=== PATIENT | female | born 1965 | race African-American/Black ===

== ENCOUNTER 2016-07-23 09:38 | Day surgery (SDC) | payer OTHER ==
--- NOTE | 2016-07-17 08:53 | HISTORY AND PHYSICAL E ---
History and Physical NAME: KATIE FRANK : 1965 AGE: 51Y ADMITTED: 07/23/2016 ROOM: Patient is known to us. I did a colonoscopy on her in the year 2014. She had sessile villous adenoma polyp about 1 cm in the right colon. The patient does have occasional diverticulosis in the transverse colon and the sessile adenoma polyp. The patient did have another colonoscopy 06/13/2016 that showed sessile cecal polyp, ascending colon polyps. PHYSICAL EXAMINATION: GENERAL: Pleasant, alert, oriented in no acute distress. VITAL SIGNS: Blood pressure is 120/80, pulse 80, respirations 18, temperature is 98. HEAD, EYES, EARS, NOSE, THROAT: Normal. NECK: Supple. LUNGS: Clear. ABDOMEN: Soft. NEUROLOGIC: Exam negative. CONCLUSION: Colorectal polyps. Referred back to me by the hospitalist. REVIEW OF SYSTEMS: CARDIOVASCULAR: Hypertension. ENDOCRINE: Diabetes. GASTROINTESTINAL: Sessile polyps, right colon. Diverticulosis. FAMILY HISTORY: Mom had colon cancer, . Her father had congestive heart failure. MEDICATIONS: 1. Simvastatin. 2. Metformin. PLAN: Colon exam. DICTATING PHYSICIAN: LEODAN VENTURA M.D. [id number] PHY#: [id number] ID: [id number] JOB#: [id number] ACCT: [id number] cc:LEODAN VENTURA M.D. >
--- NOTE | 2016-07-21 15:41 | HISTORY AND PHYSICAL E ---
History and Physical NAME: KATIE FRANK : 1965 AGE: 51Y ADMITTED: 07/23/2016 ROOM: CHIEF COMPLAINT: Colonoscopy. HISTORY: The patient was seen in 2014. Colon showed sessile adenoma, polyps. At this time, patient followup colonoscopy regarding sessile polyps ascending colon. The patient did have colonoscopy show sessile polyp in November 2014. CEA is normal. REVIEW OF SYSTEMS: CARDIAC: Hypertension. ENDOCRINE: Diabetes. GASTROINTESTINAL: Sessile polyps, right colon. FAMILY HISTORY: Father and mom both are had CA of the colon. Father had congestive heart failure. PHYSICAL EXAMINATION: VITAL SIGNS: Blood pressure 150/80, pulse 80, respirations 20, temp 98. HEAD, EYES, EARS, NOSE AND THROAT: Normal. NECK: Neck is supple. LUNGS: Lungs are clear. ABDOMEN: Soft. NEUROLOGIC: Exam negative. MEDICATIONS: The patient takes: 1. Simvastatin. 2. Metformin. CONCLUSIONS: Colon screening, history of sessile polyp right colon. PLAN: Colonoscopy. Admit 07/23/2016. DICTATING PHYSICIAN: LEODAN VENTURA M.D. [id number] PHY#: [id number] ID: [id number] JOB#: [id number] ACCT: [id number] cc:[facility] LEODAN NICOLE M.D. >
[2016-07-23] MEDS ORDERED: ONDANSETRON HCL INJ/PF 4 MG/2 ML SDV ONE (09:44)
[2016-07-23] MEDS ORDERED: LIDOCAINE 2% JELLY 30 ML TUBE ONE (09:44)
[2016-07-23] MEDS ORDERED: PROMETHAZINE HCL INJ 25 MG/1 ML VIAL ONE (09:44)
[2016-07-23] MEDS ORDERED: GLYCOPYRROLATE INJ 0.4 MG/2 ML VIAL ONE (09:44)
[2016-07-23] MEDS ORDERED: NALOXONE HCL INJ/PF 0.4 MG/1 ML SDV ONE (09:44)
[2016-07-23] MEDS ORDERED: GLUCAGON,HUMAN RECOMB 1 MG INJ ONE (09:45)
[2016-07-23] MEDS ORDERED: EPINEPHRINE INJ 1 MG/10 ML DISP.SYRIN ONE (09:45)
[2016-07-23] MEDS ORDERED: FLUMAZENIL INJ 0.5 MG/5 ML VIAL IV ONE (09:45)
[2016-07-23] MEDS: MIDAZOLAM 2 MG/2 ML INJ ONE ×2 (10:37→10:40)
[2016-07-23] MEDS: FENTANYL CITRATE INJ/PF 100 MCG/2 ML AMPUL ONE ×2 (10:39→10:45)
--- NOTE | 2016-07-23 11:23 | OPERATIVE REPORT E ---
Operative Report NAME: KATIE FRANK : 1965 AGE: 51Y DATE OF SURGERY: 07/23/2016 ROOM: PREOPERATIVE DIAGNOSIS: History of sessile polyp cecum on previous colonoscopy. Today's colon shows no polyps. PROCEDURE: Colonoscopy. SURGEON: LEODAN VENTURA M.D. TISSUE REMOVED OR ALTERED: None. FINDINGS: Occasional diverticulosis in the proximal and transverse colon, mild. I could not see any polyps on today's exam. Patient's prep was okay, but not optimal. Moderate amount of liquid stool, especially in the proximal colon. Recommend repeat colonoscopy after 1 year with better prep. ANESTHESIA: Versed 3, fentanyl 100. DESCRIPTION: Rectal exam: Normal. Sigmoid descending colon: Normal. Transverse colon: Occasional diverticulosis. Ascending colon: Stool. No polyps. Cecum: Visualized. No evidence of polyps. The previous sessile adenoma polyp was not seen. Scope withdrawn from cecum, ascending, transverse, descending, sigmoid all the way to the rectum. CONCLUSION: No evidence of malignancy. Mild diverticulosis. Patient tolerated the procedure well and discharged to her room in stable condition. DICTATING PHYSICIAN: LEODAN VENTURA M.D. [id number] PHY#: [id number] ID: [id number] JOB#: [id number] ACCT: [id number] cc:[facility], LEODAN VENTURA M.D. >
[2016-07-23 11:48] LABS: ABSOLUTE EOSINOPHILS # (AUTO) 0.1 10^3/uL (0.0-0.6); ABSOLUTE MONOCYTES (AUTO) 0.2 10^3/uL (0.1-1.4); HEMATOCRIT 42.5 % (36.0-47.0); MEAN CORPUSCULAR VOLUME 80 fl (80-97)
[2016-07-23 11:55] VITALS: BP 144/93
[2016-07-23 11:57] LABS: ABSOLUTE LYMPHOCYTES (AUTO) 1.1 10^3/uL (0.5-4.7); ABSOLUTE NEUT (AUTO) 1.2 10^3/uL (1.7-8.2); BASOPHILS % (AUTO) 0.7 % (0-2); EOSINOPHILS % (AUTO) 4.5 % (0-6); HEMOGLOBIN 12.9 g/dL (12.0-15.5); HGB HCT DIFFERENCE -3.8; LYMPHOCYTES % (AUTO) 42.7 % (13-45); MEAN CORPUSCULAR HEMOGLOBIN 24.4 pg (27.0-33.4); MEAN CORPUSCULAR HGB CONC 30.4 g/dL (32.0-36.0); MONOCYTES % (AUTO) 8.8 % (3-13); RED CELL DISTRIBUTION WIDTH 16.8 % (11.5-14.0); SEGMENTED NEUTROPHILS % (AUTO) 43.3 % (42-78); WHITE BLOOD COUNT 2.7 10^3/uL (4.0-10.5)
[2016-07-23 12:44] LABS: CARCINOEMBRYONIC ANTIGEN 2.2 ng/mL (<3.0)
--- NOTE | 2016-07-23 12:47 | DISCHARGE SUMMARY E ---
Discharge Summary NAME: KATIE FRANK : 1965 AGE: 51Y ADMITTED: 07/23/2016 DISCHARGED: 07/23/2016 HOSPITAL COURSE: The patient is a 51-year-old female who has a history of previous colonoscopy showing sessile polyps in cecum, adenoma, biopsied; this was done in 2016. Today's colonoscopy was successful to the cecum. Prep was okay but not optimal. I saw a few diverticulosis. I did not see any polyps. She did have a moderate amount of stool, especially in the right colon. DISCHARGE PLAN: I will obtain baseline CBC and CEA. Consider follow-up colonoscopy after 1 year with better prep. DICTATING PHYSICIAN: LEODAN VENTURA M.D. [id number] PHY#: [id number] ID: [id number] JOB#: [id number] ACCT: [id number] cc:[facility] LEODAN VENTURA M.D. >
[2016-07-23 12:48] LABS: FERRITIN 47.8 ng/mL (11.1-264.0)
== END 2016-07-23 12:00 | disposition home or self-care (01) ==
LOC: END 09:38
PROVIDERS: ATTEND Specialist
PROC: 0DJD8ZZ Inspection of Lower Intestinal Tract, Via Natural or Artificial Opening Endoscopic (ICD-10-PCS; principal; 2016-07-23 10:00)
DX: K57.30 Diverticulosis of large intestine without perforation or abscess without bleeding (principal); Z86.010 Personal history of colon polyps; I10 Essential (primary) hypertension; E11.9 Type 2 diabetes mellitus without complications; Z79.84 Long term (current) use of oral hypoglycemic drugs; Z79.899 Other long term (current) drug therapy
CPT/HCPCS: 45378; 36415; 82962; 82378; 82728; 83540; 85025; J2250; J3010; J1610; J0171; J2310; J2405; J2550; J3490